=== PATIENT | female | born 2000 | race American Indian/Alaskan Native ===

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

== ENCOUNTER 2021-03-06 15:01 | Emergency (ER) | payer SELFPAY ==
[2021-03-06 15:15] VITALS: BP 123/74
--- NOTE | 2021-03-06 16:25 | Emergency Department Report ---
ED General Adult HPI - General Chief complaint: Sore Throat Stated complaint: SORE THROAT Time Seen by Provider: 03/06/21 16:16 Source: patient Mode of arrival: Ambulatory Limitations: No Limitations - History of Present Illness Initial comments: 21-year-old female patient presents emergency department with complaints of sore throat for 2 days. No known sick contacts. No current steroid or antibiotic use. No recent travel. Vaccinations are up-to-date. Denies fever, chills, cough, ear pain, congestion, sneezing, hoarseness. Denies all other complaints at this time. - Related Data Previous Rx's Medication Instructions Recorded Last Taken Type Omeprazole 40 mg PO QDAY #30 capsule. 12/06/16 Unknown Rx Ondansetron [Zofran Odt] 4 mg PO Q8HR #20 tab.rapdis 12/06/16 Unknown Rx Sucralfate [Carafate] 1 gm PO ACHS #30 udc 12/06/16 Unknown Rx Naproxen 500 mg PO BID #20 tablet 03/06/21 Unknown Rx Nystas/Diphen/Xyl Visc/Mylanta 30 ml MM Q4H PRN #1 bottle 03/06/21 Unknown Rx [Magic Mouthwash] Allergies Allergy/AdvReac Type Severity Reaction Status Date / Time No Known Allergies Allergy Verified 03/06/21 15:11 ED Review of Systems ROS: Stated complaint: SORE THROAT Other details as noted in HPI Other: GENERAL: Negative for fever. ENT: Positive for sore throat. CARDIOVASCULAR: Negative for chest pain. PULMONARY: Negative for shortness of breath. GASTROINTESTINAL: Negative for abdominal pain. MUSCULOSKELETAL: Negative for back pain. NEUROLOGICAL: Negative for headache. INTEGUMENTARY: Negative for rash. ED Past Medical Hx - Past Medical History Previous Medical History?: No - Surgical History Past Surgical History?: No - Social History Smoking Status: Never Smoker Substance Use Type: None - Medications Home Medications: Home Medications Medication Instructions Recorded Confirmed Last Taken Type Omeprazole 40 mg PO QDAY #30 capsule. 12/06/16 Unknown Rx Ondansetron [Zofran Odt] 4 mg PO Q8HR #20 tab.rapdis 12/06/16 Unknown Rx Sucralfate [Carafate] 1 gm PO ACHS #30 udc 12/06/16 Unknown Rx Naproxen 500 mg PO BID #20 tablet 03/06/21 Unknown Rx Nystas/Diphen/Xyl Visc/Mylanta 30 ml MM Q4H PRN #1 bottle 03/06/21 Unknown Rx [Magic Mouthwash] ED Physical Exam - General Limitations: No Limitations - Other Other exam information: General: Awake and alert. No acute distress. Head: Atraumatic, normocephalic. Eyes: EOMI. Pupils are equal and round. Normal sclera and conjunctiva. ENT: Oral mucosa is moist. There is pharyngeal erythema with bilateral exudate. Uvula is midline and nonedematous. Patient is speaking and handling secretions without difficulty. Neck: Supple. Non-tender anterior cervical lymphadenopathy. Pulmonary: No respiratory distress. Clear to auscultation bilaterally. No stridor. Cardiac: Regular rate and rhythm. Pulses are palpable and equal bilaterally. No lower extremity cyanosis or edema. Skin: Warm and dry. No rashes. Abdomen: Soft, non-tender, non-protuberant. No guarding, rigidity, or rebound. Bowel sounds are normal. No organomegaly or masses noted. Back: Normal alignment. No CVA tenderness. Extremities: Symmetrical. Full range of motion intact. Neurological: Alert and oriented, appropriately interactive, no focal deficits. Psych: Cooperative. Appropriate mood and affect. Speech is evenly metered. Thoughts are logically construed. ED Course Vital Signs 03/06/21 15:11 Temperature 99.7 F H Pulse Rate 84 Respiratory 20 Rate Blood Pressure 123/74 O2 Sat by Pulse 96 Oximetry ED Medical Decision Making - Medical Decision Making Differential diagnosis including but not limited to: strep pharyngitis, viral pharyngitis, epiglottitis, peritonsillar abscess, retropharyngeal abscess, mononucleosis, José Luis's angina On reevaluation, patient remains stable. No hypoxia, no respiratory distress. Rapid strep test is negative. Culture pending. Empiric antibiotics will be withheld at this time per current IDSA guidelines. Patient will be discharged home with appropriate symptomatic treatment and referred to primary care provider for close outpatient follow-up. Patient expressed understanding and is agreeable to plan of care. Disease transmission precautions discussed. Strict return precautions provided. Repeat exam is unremarkable and benign. History, exam, diagnostic testing, and current condition do not suggest worrisome pathology to warrant further testing, continued ED treatment, admission, or surgical evaluation at this point. Given the low probability of a significant medical illness, it would be more likely to result in harm than benefit to perform further testing at this stage. Discussed findings, presumptive diagnosis, need for follow-up and specific signs/symptoms that should prompt immediate return to the emergency department. Instructions were explained in detail to the patient in addition to giving written discharge information. Patient expressed understanding and was given the opportunity to ask questions, all of which were satisfactorily answered prior to discharge home. Critical care attestation.: If time is entered above; I have spent that time in minutes in the direct care o f this critically ill patient, excluding procedure time. ED Disposition Clinical Impression: Pharyngitis Qualifiers: Pharyngitis/tonsillitis etiology: unspecified etiology Qualified Code(s): J02.9 - Acute pharyngitis, unspecified Disposition: TO HOME OR SELFCARE Is pt being admited?: No Does the pt Need Aspirin: No Condition: Stable Instructions: Sore Throat, [id number] Additional Instructions: Take Tylenol every 4 hours as needed for pain. Take Naprosyn twice daily with food as needed for pain. Use Magic mouthwash as directed for pain. Use salt water gargles and [id number] Cepacol lozenges as needed for pain. Rest. Drink plenty fluids. Wash hands frequently to prevent disease transmission. Do not share food or drinks with others. Follow-up with primary care provider this week. Call tomorrow to schedule an appointment. See referral information below. Throat culture is pending. If throat culture is positive, you will receive a phone call from the hospital. Return to the emergency department immediately for new or worsening symptoms. Specifically, return to the emergency department immediately for fever, difficulty swallowing, difficulty breathing, worsening pain, or any other concerns. Prescriptions: Nystas/Diphen/Xyl Visc/Mylanta [Magic Mouthwash] 30 ml MM Q4H PRN #1 bottle PRN Reason: Sore Throat Naproxen 500 mg PO BID #20 tablet Referrals: JEAN CLAUDE MILES MD [Staff Physician] - 3-5 Days [facility] [Outside] - 3-5 Days [facility] [Outside] - 3-5 Days [facility] [Outside] - 3-5 Days [facility] [Provider Group] - 3-5 Days Forms: Work/School Release Form(ED) Time of Disposition: 16:57
== END 2021-03-06 17:03 | disposition home or self-care (01) ==
LOC: ED 15:01
DX: J02.9 Acute pharyngitis, unspecified (principal); Z79.899 Other long term (current) drug therapy
CPT/HCPCS: 87116; 87430; 99283

== ENCOUNTER 2021-06-08 10:16 | Emergency (ER) | payer SELFPAY ==
[2021-06-08 11:33] VITALS: BP 124/77
--- NOTE | 2021-06-08 13:01 | Emergency Department Report ---
<JOHNNY CHUN - Last Filed: 06/08/21 12:54> ED Female HPI - General Chief complaint: Urogenital-Female Stated complaint: PH BALANCE PROBLEM Time Seen by Provider: 06/08/21 12:44 Source: patient Mode of arrival: Ambulatory Limitations: No Limitations - History of Present Illness Initial comments: 21-year-old -[place] female presents to the emergency room complaining of 2-week history of vaginal discharge and irritation. Patient states she has been abstinence. She is not concerned for STD she feels like her pH balance is off as her vaginal discharge has an odor. She denies any pelvic pain no dysuria no nausea no vomiting no fever or chills. Patient denies any new soaps does not douche. Complaint: vaginal discharge Onset/Timin -: week(s) Consistency: intermittent Are you Now?: No Last Menstrual Period: 05/30/21 EDC: 03/06/22 Associated Symptoms: denies other symptoms - Related Data Previous Rx's Medication Instructions Recorded Last Taken Type Omeprazole 40 mg PO QDAY #30 capsule. 12/06/16 Unknown Rx Ondansetron [Zofran Odt] 4 mg PO Q8HR #20 tab.rapdis 12/06/16 Unknown Rx Sucralfate [Carafate] 1 gm PO ACHS #30 udc 12/06/16 Unknown Rx Naproxen 500 mg PO BID #20 tablet 03/06/21 Unknown Rx Nystas/Diphen/Xyl Visc/Mylanta 30 ml MM Q4H PRN #1 bottle 03/06/21 Unknown Rx [Magic Mouthwash] metroNIDAZOLE [Flagyl] 500 mg PO Q8HR 7 Days #21 tablet 06/08/21 Unknown Rx Allergies Allergy/AdvReac Type Severity Reaction Status Date / Time No Known Allergies Allergy Verified 06/08/21 11:31 ED Review of Systems Comment: All other systems reviewed and negative ED Past Medical Hx - Past Medical History Previous Medical History?: No - Surgical History Hx Cholecystectomy: Yes - Social History Smoking Status: Never Smoker Substance Use Type: None - Medications Home Medications: Home Medications Medication Instructions Recorded Confirmed Last Taken Type Omeprazole 40 mg PO QDAY #30 capsule. 12/06/16 Unknown Rx Ondansetron [Zofran Odt] 4 mg PO Q8HR #20 tab.rapdis 12/06/16 Unknown Rx Sucralfate [Carafate] 1 gm PO ACHS #30 udc 12/06/16 Unknown Rx Naproxen 500 mg PO BID #20 tablet 03/06/21 Unknown Rx Nystas/Diphen/Xyl Visc/Mylanta 30 ml MM Q4H PRN #1 bottle 03/06/21 Unknown Rx [Magic Mouthwash] metroNIDAZOLE [Flagyl] 500 mg PO Q8HR 7 Days #21 tablet 06/08/21 Unknown Rx ED Physical Exam - General Limitations: No Limitations General appearance: alert, in no apparent distress - Head Head exam: Present: atraumatic, normocephalic - Eye Eye exam: Present: normal appearance - ENT ENT exam: Present: normal external ear exam - Neck Neck exam: Present: normal inspection, full ROM - Respiratory Respiratory exam: Present: normal lung sounds bilaterally. Absent: accessory muscle use - Cardiovascular Cardiovascular Exam: Present: regular rate - GI/Abdominal GI/Abdominal exam: Present: soft, normal bowel sounds. Absent: distended, tenderness, guarding - Extremities Exam Extremities exam: Present: normal inspection, full ROM - Back Exam Back exam: Present: normal inspection - Neurological Exam Neurological exam: Present: alert, oriented X3, normal gait - Psychiatric Psychiatric exam: Present: normal affect, normal mood. Absent: suicidal ideation - Skin Skin exam: Present: warm, dry, intact, normal color. Absent: rash ED Medical Decision Making - Medical Decision Making 21-year-old -[place] female presents to the emergency room complaining of 2-week history of vaginal discharge and irritation. Patient states she has been abstinence. She is not concerned for STD she feels like her pH balance is off as her vaginal discharge has an odor. She denies any pelvic pain no dysuria no nausea no vomiting no fever or chills. Patient denies any new soaps does not douche. Discussed with patient we will treat her for bacterial vaginosis. Also strongly suggest patient to follow-up with the [facility] for a full female examination. Patient verbalized understanding. ED Disposition Clinical Impression: Vaginitis Disposition: HOME / SELF CARE / HOMELESS Is pt being admited?: No Does the pt Need Aspirin: No Condition: Stable Instructions: Bacterial Vaginosis, [id number], Vaginitis Additional Instructions: Recommend to follow-up at [facility] or health department or primary care provider. Prescriptions: metroNIDAZOLE [Flagyl] 500 mg PO Q8HR 7 Days #21 tablet Referrals: [facility] [Provider Group] - 3-5 Days [facility] [Provider Group] - 3-5 Days [facility] [Provider Group] - 3-5 Days [facility] [Outside] - 3-5 Days [facility] [Primary Care Provider] - 3-5 Days Forms: Work/School Release Form(ED) Time of Disposition: 13:01 <KENISHA RODRIGUEZ - Last Filed: 06/08/21 15:10> ED Review of Systems ROS: Stated complaint: PH BALANCE PROBLEM Other details as noted in HPI ED Course Vital Signs 06/08/21 11:32 Temperature 98.1 F Pulse Rate 56 L Respiratory 16 Rate Blood Pressure 124/77 O2 Sat by Pulse 100 Oximetry Critical care attestation.: If time is entered above; I have spent that time in minutes in the direct care of this critically ill patient, excluding procedure time. ED Disposition Is pt being admited?: No Does the pt Need Aspirin: No
== END 2021-06-08 12:59 | disposition home or self-care (01) ==
LOC: ED 10:16
DX: N76.0 Acute vaginitis (principal); Z98.890 Other specified postprocedural states
CPT/HCPCS: 99281

== ENCOUNTER 2022-01-06 01:16 | Emergency (ER) | payer SELFPAY ==
[2022-01-06] MEDS ORDERED: SODIUM CHLORIDE 0.9% 1000 ML 1,000 ML IV ONE (01:45)
[2022-01-06 02:07] LABS: Basophils # (Auto) 0.1 K/mm3 (0.0-0.1); Basophils % (Auto) 0.4 % (0.0-1.8); Eosinophils % (Auto) 0.3 % (0.0-4.3); Hematocrit 35.9 % (30.3-42.9); Hemoglobin 12.4 gm/dl (10.1-14.3); Lymphocytes # (Auto) 1.3 K/mm3 (1.2-5.4); Lymphocytes % (Auto) 9.9 % (13.4-35.0); Mean Corpuscular HGB Conc 35 % (30-34); Mean Corpuscular Volume 89 fl (79-97); Monocytes % (Auto) 7.7 % (0.0-7.3); Platelet Count 174 K/mm3 (140-440); Red Blood Count 4.02 M/mm3 (3.65-5.03); Red Cell Distribution Width 14.4 % (13.2-15.2)
[2022-01-06] MEDS ORDERED: ONDANSETRON 4 MG/2 ML INJ IV ONE (02:09)
[2022-01-06] MEDS ORDERED: MORPHINE 4 MG/1 ML INJ IV ONE ×2 (02:21→02:23)
[2022-01-06 02:36] LABS: Bilirubin,Urine NEG (Negative); Blood,Urine LG (Negative); Color,Urine RED (Yellow); RBC,Urine > 182.0 /HPF (0.0-6.0); Urobilinogen,Urine < 2.0 mg/dL (<2.0)
[2022-01-06 02:41] LABS: HCG Qualitative,Urine Negative (Negative)
--- NOTE | 2022-01-06 07:34 | Consultation ---
History of Present Illness Consult date: 01/06/22 Requesting physician: TYSON SMITH Reason for consult: other (vaginal bleeding) History of present illness: Pt is a 21 year old G0 who presents to ED with significant vaginal bleeding which began during sexual intercourse. Pt reports that her first sexual encounter was 2 weeks ago. She had a regular menses which ended on 01/04/22. Pt stated that the current bleeding episode began tonight during sex. Per the ED physician patient had a vaginal laceration and required "packing" to help control the bleeding. Pt denies any vaginal trauma or excessive force during the act. Pt also denies use of any toys or sexual devices during sex. Pt's boyfriend is present in the room with her during the exam and interview. Past History Past Medical History: no pertinent history Past Surgical History: no surgical history Family/Genetic History: none Social history: single Medications and Allergies Allergies Allergy/AdvReac Type Severity Reaction Status Date / Time No Known Allergies Allergy Verified 06/08/21 11:31 Home Medications Medication Instructions Recorded Confirmed Last Taken Type Omeprazole 40 mg PO QDAY #30 capsule.dr 12/06/16 Unknown Rx Ondansetron [Zofran Odt] 4 mg PO Q8HR #20 tab.rapdis 12/06/16 Unknown Rx Sucralfate [Carafate] 1 gm PO ACHS #30 udc 12/06/16 Unknown Rx Naproxen 500 mg PO BID #20 tablet 03/06/21 Unknown Rx Nystas/Diphen/Xyl Visc/Mylanta 30 ml MM Q4H PRN #1 bottle 03/06/21 Unknown Rx [Magic Mouthwash] metroNIDAZOLE [Flagyl] 500 mg PO Q8HR 7 Days #21 tablet 06/08/21 Unknown Rx Review of Systems All systems: negative Genitourinary: vaginal bleeding - Vital Signs Vital signs: Vital Signs Temp Pulse Resp BP Pulse Ox 98.1 F 70 12 115/69 100 01/06/22 02:34 01/06/22 02:34 01/06/22 02:34 01/06/22 02:34 01/06/22 02:34 Temp Pulse Resp BP Pulse Ox 98.1 F 85 12 117/66 100 01/06/22 02:34 01/06/22 06:05 01/06/22 06:05 01/06/22 06:05 01/06/22 06:05 - Physical Exam Breasts: Positive: deferred Cardiovascular: Regular rate, Normal S1, Normal S2 Abdomen: Positive: normal appearance, soft, normal bowel sounds. Negative: dist ention, tenderness Vulva: both: normal Vagina: Positive: other (3cm mucosal laceration of the upper left lateral vaginal wall with only minimal active bleeding) Anus/Rectum: Positive: normal perianal skin Results Result Diagrams: 01/06/22 01:51 Abnormal lab results 01/06/22 01/06/22 Range/Units 01:51 01:53 WBC 12.7 H (4.5-11.0) K/mm3 MCHC 35 H (30-34) % Lymph % (Auto) 9.9 L (13.4-35.0) % [place] % (Auto) 7.7 H (0.0-7.3) % [place] # (Auto) 1.0 H (0.0-0.8) K/mm3 Seg Neutrophils % 81.7 H (40.0-70.0) % Seg Neutrophils # 10.3 H (1.8-7.7) K/mm3 Urine WBC (Auto) 46.0 H (0.0-6.0) /HPF All other labs normal. Assessment and Plan 21 year old female here with vaginal bleeding secondary to vaginal laceration of the upper vaginal wall. Bleeding is well controlled at this time. I advised patient that since bleeding was stable that we could do one of 2 options: 1. the patient would have to go to the operating room to have repair of the laceration secondary to its location and the patient's inability to tolerate that procedure awake or 2. vaginal packing for 24 hours and have the patient returnd to the ED on tomorrow for removal of the packing. The patient opted for the s econd choice. The vagina was packed with packing gauze. Pt to return tomorrow.
--- NOTE | 2022-01-06 07:59 | Emergency Department Report ---
ED Female HPI - General Chief complaint: Vaginal Bleeding Stated complaint: VAGINAL BLEEDING Time Seen by Provider: 01/06/22 01:42 Source: patient Mode of arrival: Ambulatory Limitations: No Limitations - History of Present Illness Initial comments: This patient presents to the emergency department for evaluation of severe vaginal bleeding which started after she had intercourse in the evening. The patient denies prior history of bleeding. Her last period was from Saturday through of this week. Patient is a G0, P0 Ab0 and does not have a abrasive band winder. She denies any use of instrumentation during the process of her intercourse. She complains of some pelvic pain but denies abdominal pain. Patient denies dizziness or weakness at this time. MD Complaint: vaginal bleeding -: Sudden - Related Data Previous Rx's Medication Instructions Recorded Last Taken Type Omeprazole 40 mg PO QDAY #30 capsule. 12/06/16 Unknown Rx Ondansetron [Zofran Odt] 4 mg PO Q8HR #20 tab.rapdis 12/06/16 Unknown Rx Sucralfate [Carafate] 1 gm PO ACHS #30 udc 12/06/16 Unknown Rx Naproxen 500 mg PO BID #20 tablet 03/06/21 Unknown Rx Nystas/Diphen/Xyl Visc/Mylanta 30 ml MM Q4H PRN #1 bottle 03/06/21 Unknown Rx [Magic Mouthwash] metroNIDAZOLE [Flagyl] 500 mg PO Q8HR 7 Days #21 tablet 06/08/21 Unknown Rx Allergies Allergy/AdvReac Type Severity Reaction Status Date / Time No Known Allergies Allergy Verified 06/08/21 11:31 ED Review of Systems ROS: Stated complaint: VAGINAL BLEEDING Other details as noted in HPI Comment: All other systems reviewed and negative Gastrointestinal: nausea. denies: abdominal pain, vomiting, diarrhea Genitourinary: denies: urgency, dysuria, hematuria ED Past Medical Hx - Surgical History Hx Cholecystectomy: Yes - Social History Smoking Status: Never Smoker Substance Use Type: None - Medications Home Medications: Home Medications Medication Instructions Recorded Confirmed Last Taken Type Omeprazole 40 mg PO QDAY #30 capsule. 12/06/16 Unknown Rx Ondansetron [Zofran Odt] 4 mg PO Q8HR #20 tab.rapdis 12/06/16 Unknown Rx Sucralfate [Carafate] 1 gm PO ACHS #30 udc 12/06/16 Unknown Rx Naproxen 500 mg PO BID #20 tablet 03/06/21 Unknown Rx Nystas/Diphen/Xyl Visc/Mylanta 30 ml MM Q4H PRN #1 bottle 03/06/21 Unknown Rx [Magic Mouthwash] metroNIDAZOLE [Flagyl] 500 mg PO Q8HR 7 Days #21 tablet 06/08/21 Unknown Rx ED Physical Exam - General Limitations: No Limitations General appearance: alert, in no apparent distress, anxious - Head Head exam: Present: atraumatic, normocephalic - Eye Eye exam: Present: normal appearance - ENT ENT exam: Present: mucous membranes moist - Neck Neck exam: Present: normal inspection - Respiratory Respiratory exam: Present: normal lung sounds bilaterally. Absent: respiratory distress - Cardiovascular Cardiovascular Exam: Present: regular rate, normal rhythm. Absent: systolic murmur, diastolic murmur, rubs, gallop - GI/Abdominal GI/Abdominal exam: Present: soft. Absent: distended, tenderness - Rectal Rectal exam: Present: deferred - External exam: Present: bleeding (Heavily with large amounts of blood at the introitus.) Speculum exam: Present: vaginal bleeding (Which could not be identified. It is suspected that the patient has vaginal lacerations), laceration Bi-manual exam: Absent: uterine enlargement, uterine tenderness - Extremities Exam Extremities exam: Present: normal inspection, full ROM. Absent: tenderness - Back Exam Back exam: Present: normal inspection, full ROM. Absent: tenderness ED Course Vital Signs 01/06/22 01/06/22 01/06/22 02:34 03:32 05:25 Temperature 98.1 F Pulse Rate 70 89 89 Respiratory 12 18 12 Rate Blood Pressure 109/56 Blood Pressure 115/69 109/56 110/56 [Right] O2 Sat by Pulse 100 100 100 Oximetry 01/06/22 06:05 Temperature Pulse Rate 85 Respiratory 12 Rate Blood Pressure Blood Pressure 117/66 [Right] O2 Sat by Pulse 100 Oximetry ED Medical Decision Making - Lab Data Result diagrams: 01/06/22 01:51 Labs reviewed and are noted to be normal patient's test was negative - Medical Decision Making An IV was started on the patient and she was typed and screened in case she needed a blood transfusion. She was given normal saline IV 1 L. The pelvic exam demonstrated significant amounts of blood within the vaginal vault however the bleeding site could not be identified.. I packed the vaginal vault with 4 x 4 gauze in order to tamponade the bleeding. This appeared to bring under control. Dr. Romero covering gynecology was consulted to evaluate the patient. Critical care attestation.: If time is entered above; I have spent that time in minutes in the direct care of this critically ill patient, excluding procedure time. ED Disposition Clinical Impression: Vaginal laceration Disposition: HOME / SELF CARE / HOMELESS Condition: Stable Instructions: Vaginal Laceration Additional Instructions: Follow-up with Dr. Romero as asked. Return to the emergency department if any problems. Referrals: JEAN CLAUDE MILES MD [Primary Care Provider] - 3-5 Days
[2022-01-06 08:53] VITALS: BP 131/66
== END 2022-01-06 09:00 | disposition home or self-care (01) ==
LOC: ED 01:16
DX: S31.41XA Laceration without foreign body of vagina and vulva, initial encounter (principal); Z90.49 Acquired absence of other specified parts of digestive tract; Z79.899 Other long term (current) drug therapy; X58.XXXA Exposure to other specified factors, initial encounter; Y93.89 Activity, other specified; Y92.89 Other specified places as the place of occurrence of the external cause; Y99.8 Other external cause status
CPT/HCPCS: 36415; 81001; 81025; 85025; 86850; 86900; 86901; 87086; 96361; 96374; 96375; 99283; J2270; J2405; J7030; Q0162

== ENCOUNTER 2022-01-07 13:17 | Emergency (ER) | payer OTHER ==
--- NOTE | 2022-01-07 14:48 | Emergency Department Report ---
ED Female HPI - General Chief complaint: Medical Clearance Stated complaint: VAGINAL TEAR Time Seen by Provider: 01/07/22 14:42 Source: patient Mode of arrival: Ambulatory Limitations: No Limitations - History of Present Illness Initial comments: 21-year-old female presents to the hospital for vaginal packing removal. Patient with here the morning of January 06 for heavy vaginal bleeding after vaginal intercourse and was diagnosed with a vaginal tear. Patient was evaluated by [facility], received vaginal packing, and was subsequently discharged home to the ED. Patient returns today for vaginal packing removal which was performed by consulting [facility] doctor Dr. Romero in the ER. Patient patient denies any complaints of vaginal bleeding at this time - Related Data Previous Rx's Medication Instructions Recorded Last Taken Type Omeprazole 40 mg PO QDAY #30 capsule. 12/06/16 Unknown Rx Ondansetron [Zofran Odt] 4 mg PO Q8HR #20 tab.rapdis 12/06/16 Unknown Rx Sucralfate [Carafate] 1 gm PO ACHS #30 udc 12/06/16 Unknown Rx Naproxen 500 mg PO BID #20 tablet 03/06/21 Unknown Rx Nystas/Diphen/Xyl Visc/Mylanta 30 ml MM Q4H PRN #1 bottle 03/06/21 Unknown Rx [Magic Mouthwash] metroNIDAZOLE [Flagyl] 500 mg PO Q8HR 7 Days #21 tablet 06/08/21 Unknown Rx Allergies Allergy/AdvReac Type Severity Reaction Status Date / Time No Known Allergies Allergy Verified 06/08/21 11:31 ED Review of Systems ROS: Stated complaint: VAGINAL TEAR Other details as noted in HPI Comment: All other systems reviewed and negative ED Past Medical Hx - Past Medical History Previous Medical History?: No - Surgical History Hx Cholecystectomy: Yes - Social History Smoking Status: Never Smoker Substance Use Type: None - Medications Home Medications: Home Medications Medication Instructions Recorded Confirmed Last Taken Type Omeprazole 40 mg PO QDAY #30 capsule. 12/06/16 Unknown Rx Ondansetron [Zofran Odt] 4 mg PO Q8HR #20 tab.rapdis 12/06/16 Unknown Rx Sucralfate [Carafate] 1 gm PO ACHS #30 udc 12/06/16 Unknown Rx Naproxen 500 mg PO BID #20 tablet 03/06/21 Unknown Rx Nystas/Diphen/Xyl Visc/Mylanta 30 ml MM Q4H PRN #1 bottle 03/06/21 Unknown Rx [Magic Mouthwash] metroNIDAZOLE [Flagyl] 500 mg PO Q8HR 7 Days #21 tablet 06/08/21 Unknown Rx ED Physical Exam - General Limitations: No Limitations - Other Other exam information: General: No acute distress Head: Atraumatic Eyes: normal appearance ENT: Moist mucous membranes Neck: Normal appearance, no midline tenderness Chest: Clear to auscultation bilaterally CV: Regular rate and rhythm Abdomen: Soft, normal bowel sounds, nontender, nondistended, no rebound or guarding Back: Normal inspection Extremity: Normal inspection, full range of motion Neuro: Alert O x 3, no facial asymmetry, speech clear, no gross motor sensory deficit Psych: Appropriate behavior Skin: No rash ED Course Vital Signs 01/07/22 13:35 Temperature 98.5 F Pulse Rate 94 H Respiratory 18 Rate Blood Pressure 111/71 O2 Sat by Pulse 100 Oximetry ED Medical Decision Making - Medical Decision Making 21-year-old female presents to the hospital for vaginal packing removal status post heavy vaginal bleeding from vaginal tear that occurred during intercourse. Patient was evaluated by Dr. Romero and had vaginal packing removal. Patient is no longer bleeding and does not endorse pain. please refer to Dr. Romero's note. Patient will be discharged with follow-up Critical Care Time: No Critical care attestation.: If time is entered above; I have spent that time in minutes in the direct care of this critically ill patient, excluding procedure time. ED Disposition Clinical Impression: Vaginal laceration Disposition: 01 HOME / SELF CARE / HOMELESS Is pt being admited?: No Does the pt Need Aspirin: No Condition: Stable Instructions: Vaginal Laceration Additional Instructions: Follow-up with Dr. Romero in the office. Do not engage in vaginal sexual i ntercourse or vaginal penetration for at least 4 weeks Referrals: DU ROMERO MD [Staff Physician] - 7-10 days Time of Disposition: 14:53
--- NOTE | 2022-01-07 14:49 | Consultation ---
History of Present Illness Consult date: 01/07/22 Reason for consult: other (Removal of vaginal packing) History of present illness: Patient is a 21-year-old 0 who presents today to have her vaginal packing removed. Patient was seen yesterday secondary to a traumatic vaginal laceration that was acquired during sexual intercourse. Her vagina was packed and she was advised to return today to have packing removed. She reports no bleeding overnight. She reports no pain. Past History Past Medical History: no pertinent history Past Surgical History: no surgical history Family/Genetic History: none Social history: single Medications and Allergies Allergies Allergy/AdvReac Type Severity Reaction Status Date / Time No Known Allergies Allergy Verified 06/08/21 11:31 Home Medications Medication Instructions Recorded Confirmed Last Taken Type Omeprazole 40 mg PO QDAY #30 capsule. 12/06/16 Unknown Rx Ondansetron [Zofran Odt] 4 mg PO Q8HR #20 tab.rapdis 12/06/16 Unknown Rx Sucralfate [Carafate] 1 gm PO ACHS #30 udc 12/06/16 Unknown Rx Naproxen 500 mg PO BID #20 tablet 03/06/21 Unknown Rx Nystas/Diphen/Xyl Visc/Mylanta 30 ml MM Q4H PRN #1 bottle 03/06/21 Unknown Rx [Magic Mouthwash] metroNIDAZOLE [Flagyl] 500 mg PO Q8HR 7 Days #21 tablet 06/08/21 Unknown Rx - Vital Signs Vital signs: Vital Signs Temp Pulse Resp BP Pulse Ox 98.5 F 94 H 18 111/71 100 01/07/22 13:35 01/07/22 13:35 01/07/22 13:35 01/07/22 13:35 01/07/22 13:35 Temp Pulse Resp BP Pulse Ox 98.5 F 94 H 18 111/71 100 01/07/22 13:35 01/07/22 13:35 01/07/22 13:35 01/07/22 13:35 01/07/22 13:35 - Physical Exam Breasts: Positive: deferred Vagina: Positive: normal moisture, other (Hemostatic laceration on upper left sidewall, beginning to show signs of granulation tissue and healing.) Results All other labs normal. Assessment and Plan 21-year-old female here today to have packing removed. Packing was removed without difficulty. Patient was advised to abstain from sexual intercourse and no items in the vagina for at least 4 weeks. Patient advised to follow-up as outpatient with Dr. Mela Romero.
[2022-01-07 15:16] VITALS: BP 118/76
== END 2022-01-07 15:13 | disposition home or self-care (01) ==
LOC: ED 13:17
DX: S31.41XD Laceration without foreign body of vagina and vulva, subsequent encounter (principal); X58.XXXD Exposure to other specified factors, subsequent encounter; Z90.49 Acquired absence of other specified parts of digestive tract
CPT/HCPCS: 99282